=== PATIENT | female | born 1945 | race American Indian/Alaskan Native ===

== ENCOUNTER 2017-02-07 11:24 | Day surgery (SDC) | payer MEDICARE, OTHER ==
[~2017-02-07 11:24] MED LIST: ALLO100T PO; ASPI-1265 PO; CEPH-571 PO; CETI-1 PO; CHOL10002 PO; HYDR-569 PO; LEVO125T8 PO; ROSU5TAB4 PO; SILV20CR13 TOP; ZAR2.5T PO
[2017-02-07] MEDS ORDERED: LIDOcaine 2% 5ml jelly ONE ×2 (12:05)
== END 2017-02-07 13:16 | disposition home or self-care (01) ==
LOC: WOUND CARE 11:24
PROVIDERS: ATTEND Surgery
DX: I87.2 Venous insufficiency (chronic) (peripheral) (principal); L98.491 Non-pressure chronic ulcer of skin of other sites limited to breakdown of skin; E11.621 Type 2 diabetes mellitus with foot ulcer; E11.622 Type 2 diabetes mellitus with other skin ulcer; L97.511 Non-pressure chronic ulcer of other part of right foot limited to breakdown of skin; L97.821 Non-pressure chronic ulcer of other part of left lower leg limited to breakdown of skin; T22.20XD Burn of second degree of shoulder and upper limb, except wrist and hand, unspecified site, subsequent encounter; T31.0 Burns involving less than 10% of body surface; J44.9 Chronic obstructive pulmonary disease, unspecified; M10.9 Gout, unspecified; E78.00 Pure hypercholesterolemia, unspecified; E11.22 Type 2 diabetes mellitus with diabetic chronic kidney disease; I13.0 Hypertensive heart and chronic kidney disease with heart failure and stage 1 through stage 4 chronic kidney disease, or unspecified chronic kidney disease; N18.9 Chronic kidney disease, unspecified; I50.9 Heart failure, unspecified; Z90.710 Acquired absence of both cervix and uterus; Z85.038 Personal history of other malignant neoplasm of large intestine; Z79.82 Long term (current) use of aspirin; Z79.899 Other long term (current) drug therapy; X08.8XXD Exposure to other specified smoke, fire and flames, subsequent encounter
CPT/HCPCS: 97597; A6021; A6206; A6213; A6441

== ENCOUNTER 2017-02-14 11:38 | Outpatient (CLI) | payer MEDICARE, OTHER ==
[2017-02-14] MEDS ORDERED: silver sulfadiazine cream 50gm TP ONE (12:55)
== END 2017-02-14 12:51 | disposition home or self-care (01) ==
LOC: WOUND CARE 11:38
PROVIDERS: ATTEND Surgery
DX: E11.622 Type 2 diabetes mellitus with other skin ulcer (principal); L98.491 Non-pressure chronic ulcer of skin of other sites limited to breakdown of skin; L97.821 Non-pressure chronic ulcer of other part of left lower leg limited to breakdown of skin; L97.811 Non-pressure chronic ulcer of other part of right lower leg limited to breakdown of skin; E11.621 Type 2 diabetes mellitus with foot ulcer; L97.511 Non-pressure chronic ulcer of other part of right foot limited to breakdown of skin; T25.221D Burn of second degree of right foot, subsequent encounter; I13.0 Hypertensive heart and chronic kidney disease with heart failure and stage 1 through stage 4 chronic kidney disease, or unspecified chronic kidney disease; E11.22 Type 2 diabetes mellitus with diabetic chronic kidney disease; N18.9 Chronic kidney disease, unspecified; I50.9 Heart failure, unspecified; J44.9 Chronic obstructive pulmonary disease, unspecified; M10.9 Gout, unspecified; E78.00 Pure hypercholesterolemia, unspecified; I87.2 Venous insufficiency (chronic) (peripheral); Z90.710 Acquired absence of both cervix and uterus; Z79.82 Long term (current) use of aspirin; Z79.899 Other long term (current) drug therapy; Z85.038 Personal history of other malignant neoplasm of large intestine; Z90.49 Acquired absence of other specified parts of digestive tract; X08.8XXD Exposure to other specified smoke, fire and flames, subsequent encounter
CPT/HCPCS: 29581; 36416; 82948; A6206; A6223; A6441

== ENCOUNTER 2017-02-20 11:05 | Outpatient (CLI) | payer MEDICARE, OTHER | END 2017-02-20 12:37 | disposition home or self-care (01) | LOC: WOUND CARE 11:05 | PROVIDERS: ATTEND Surgery | DX: I87.2 Venous insufficiency (chronic) (peripheral) (principal); L98.491 Non-pressure chronic ulcer of skin of other sites limited to breakdown of skin; E11.622 Type 2 diabetes mellitus with other skin ulcer; L97.821 Non-pressure chronic ulcer of other part of left lower leg limited to breakdown of skin; J44.9 Chronic obstructive pulmonary disease, unspecified; M10.9 Gout, unspecified; E11.22 Type 2 diabetes mellitus with diabetic chronic kidney disease; I13.0 Hypertensive heart and chronic kidney disease with heart failure and stage 1 through stage 4 chronic kidney disease, or unspecified chronic kidney disease; I50.9 Heart failure, unspecified; N18.9 Chronic kidney disease, unspecified; E78.00 Pure hypercholesterolemia, unspecified; Z79.82 Long term (current) use of aspirin; Z79.899 Other long term (current) drug therapy; Z85.038 Personal history of other malignant neoplasm of large intestine; Z90.710 Acquired absence of both cervix and uterus; Z90.49 Acquired absence of other specified parts of digestive tract | CPT/HCPCS: 29581; 36416; 82948; A6021; A6212; A6222; A6441 ==

== ENCOUNTER 2017-02-28 11:00 | Day surgery (SDC) | payer MEDICARE, OTHER | END 2017-02-28 13:40 | disposition home or self-care (01) | LOC: WOUND CARE 11:00 | PROVIDERS: ATTEND Surgery | DX: T22.20XD Burn of second degree of shoulder and upper limb, except wrist and hand, unspecified site, subsequent encounter (principal); E11.622 Type 2 diabetes mellitus with other skin ulcer; L97.821 Non-pressure chronic ulcer of other part of left lower leg limited to breakdown of skin; L97.811 Non-pressure chronic ulcer of other part of right lower leg limited to breakdown of skin; E11.22 Type 2 diabetes mellitus with diabetic chronic kidney disease; I13.0 Hypertensive heart and chronic kidney disease with heart failure and stage 1 through stage 4 chronic kidney disease, or unspecified chronic kidney disease; N18.4 Chronic kidney disease, stage 4 (severe); I50.9 Heart failure, unspecified; E78.00 Pure hypercholesterolemia, unspecified; Z90.710 Acquired absence of both cervix and uterus; X08.8XXD Exposure to other specified smoke, fire and flames, subsequent encounter | CPT/HCPCS: 17250; 29581; 36416; 82948; A6021; A6206; A6213; A6441 ==

== ENCOUNTER 2017-03-07 10:50 | Day surgery (SDC) | payer MEDICARE, OTHER ==
[~2017-03-07 10:50] MED LIST changes: -CEPH-571 PO
== END 2017-03-07 12:32 | disposition home or self-care (01) ==
LOC: WOUND CARE 10:50
PROVIDERS: ATTEND Surgery
DX: E11.622 Type 2 diabetes mellitus with other skin ulcer (principal); L98.491 Non-pressure chronic ulcer of skin of other sites limited to breakdown of skin; N18.4 Chronic kidney disease, stage 4 (severe); I11.0 Hypertensive heart disease with heart failure; I50.9 Heart failure, unspecified; E78.00 Pure hypercholesterolemia, unspecified; J44.9 Chronic obstructive pulmonary disease, unspecified; M10.9 Gout, unspecified; I87.2 Venous insufficiency (chronic) (peripheral); I49.9 Cardiac arrhythmia, unspecified; K21.9 Gastro-esophageal reflux disease without esophagitis; Z85.42 Personal history of malignant neoplasm of other parts of uterus; Z90.710 Acquired absence of both cervix and uterus; Z79.82 Long term (current) use of aspirin; Z79.899 Other long term (current) drug therapy; Z85.038 Personal history of other malignant neoplasm of large intestine; Z90.49 Acquired absence of other specified parts of digestive tract
CPT/HCPCS: 17250; 36416; 82948; A6021; A6212; A6222; A6441

== ENCOUNTER 2017-09-27 09:25 | Day surgery (SDC) | payer MEDICARE, OTHER | END 2017-09-27 12:45 | disposition home or self-care (01) | LOC: WOUND CARE 09:25 | PROVIDERS: ATTEND Surgery | DX: E11.622 Type 2 diabetes mellitus with other skin ulcer (principal); L97.221 Non-pressure chronic ulcer of left calf limited to breakdown of skin; L97.821 Non-pressure chronic ulcer of other part of left lower leg limited to breakdown of skin; L97.811 Non-pressure chronic ulcer of other part of right lower leg limited to breakdown of skin; E11.22 Type 2 diabetes mellitus with diabetic chronic kidney disease; I13.0 Hypertensive heart and chronic kidney disease with heart failure and stage 1 through stage 4 chronic kidney disease, or unspecified chronic kidney disease; N18.4 Chronic kidney disease, stage 4 (severe); I50.9 Heart failure, unspecified; E11.65 Type 2 diabetes mellitus with hyperglycemia; E78.00 Pure hypercholesterolemia, unspecified; J44.9 Chronic obstructive pulmonary disease, unspecified; M10.9 Gout, unspecified; I87.2 Venous insufficiency (chronic) (peripheral); I49.9 Cardiac arrhythmia, unspecified; K21.9 Gastro-esophageal reflux disease without esophagitis; Z85.42 Personal history of malignant neoplasm of other parts of uterus; Z90.710 Acquired absence of both cervix and uterus; Z79.82 Long term (current) use of aspirin; Z79.899 Other long term (current) drug therapy; Z85.038 Personal history of other malignant neoplasm of large intestine; Z90.49 Acquired absence of other specified parts of digestive tract | CPT/HCPCS: 97597; A6021; A6223; A6441 ==

== ENCOUNTER 2017-10-04 10:00 | Outpatient (CLI) | payer MEDICARE, OTHER ==
[~2017-10-04 10:00] MED LIST changes: -SILV20CR13 TOP
== END 2017-10-04 12:29 | disposition home or self-care (01) ==
LOC: WOUND CARE 10:00 → EDSTATUS 10:00 → WOUND CARE 12:29
PROVIDERS: ATTEND Surgery
DX: E11.622 Type 2 diabetes mellitus with other skin ulcer (principal); L97.221 Non-pressure chronic ulcer of left calf limited to breakdown of skin; L97.821 Non-pressure chronic ulcer of other part of left lower leg limited to breakdown of skin; L97.811 Non-pressure chronic ulcer of other part of right lower leg limited to breakdown of skin; I83.223 Varicose veins of left lower extremity with both ulcer of ankle and inflammation; L97.321 Non-pressure chronic ulcer of left ankle limited to breakdown of skin; E11.621 Type 2 diabetes mellitus with foot ulcer; L97.511 Non-pressure chronic ulcer of other part of right foot limited to breakdown of skin; E11.22 Type 2 diabetes mellitus with diabetic chronic kidney disease; I13.0 Hypertensive heart and chronic kidney disease with heart failure and stage 1 through stage 4 chronic kidney disease, or unspecified chronic kidney disease; N18.4 Chronic kidney disease, stage 4 (severe); I50.9 Heart failure, unspecified; E11.65 Type 2 diabetes mellitus with hyperglycemia; E78.00 Pure hypercholesterolemia, unspecified; J44.9 Chronic obstructive pulmonary disease, unspecified; M10.9 Gout, unspecified; I49.9 Cardiac arrhythmia, unspecified; K21.9 Gastro-esophageal reflux disease without esophagitis; Z85.42 Personal history of malignant neoplasm of other parts of uterus; Z90.710 Acquired absence of both cervix and uterus; Z79.82 Long term (current) use of aspirin; Z79.899 Other long term (current) drug therapy; Z85.038 Personal history of other malignant neoplasm of large intestine; Z90.49 Acquired absence of other specified parts of digestive tract
CPT/HCPCS: 29581; A6021; A6196; A6223; A6441

== ENCOUNTER 2017-10-11 09:37 | Outpatient (CLI) | payer MEDICARE, OTHER | END 2017-10-11 12:22 | disposition home or self-care (01) | LOC: WOUND CARE 09:37 → EDSTATUS 10:00 → WOUND CARE 12:22 | PROVIDERS: ATTEND Surgery | DX: E11.622 Type 2 diabetes mellitus with other skin ulcer (principal); L97.221 Non-pressure chronic ulcer of left calf limited to breakdown of skin; L97.821 Non-pressure chronic ulcer of other part of left lower leg limited to breakdown of skin; L97.811 Non-pressure chronic ulcer of other part of right lower leg limited to breakdown of skin; I83.223 Varicose veins of left lower extremity with both ulcer of ankle and inflammation; L97.321 Non-pressure chronic ulcer of left ankle limited to breakdown of skin; E11.621 Type 2 diabetes mellitus with foot ulcer; L97.511 Non-pressure chronic ulcer of other part of right foot limited to breakdown of skin; E11.22 Type 2 diabetes mellitus with diabetic chronic kidney disease; I13.0 Hypertensive heart and chronic kidney disease with heart failure and stage 1 through stage 4 chronic kidney disease, or unspecified chronic kidney disease; N18.4 Chronic kidney disease, stage 4 (severe); I50.9 Heart failure, unspecified; E11.65 Type 2 diabetes mellitus with hyperglycemia; E78.00 Pure hypercholesterolemia, unspecified; J44.9 Chronic obstructive pulmonary disease, unspecified; M10.9 Gout, unspecified; I49.9 Cardiac arrhythmia, unspecified; K21.9 Gastro-esophageal reflux disease without esophagitis; Z85.42 Personal history of malignant neoplasm of other parts of uterus; Z90.710 Acquired absence of both cervix and uterus; Z79.82 Long term (current) use of aspirin; Z79.899 Other long term (current) drug therapy; Z85.038 Personal history of other malignant neoplasm of large intestine; Z90.49 Acquired absence of other specified parts of digestive tract | CPT/HCPCS: 29581; 36416; 82948; A6223; A6441 ==

== ENCOUNTER 2017-10-25 09:50 | Outpatient (CLI) | payer MEDICARE, OTHER | END 2017-10-25 12:11 | disposition home or self-care (01) | LOC: WOUND CARE 09:50 → EDSTATUS 10:00 → WOUND CARE 12:11 | PROVIDERS: ATTEND Surgery | DX: E11.622 Type 2 diabetes mellitus with other skin ulcer (principal); L97.221 Non-pressure chronic ulcer of left calf limited to breakdown of skin; L97.821 Non-pressure chronic ulcer of other part of left lower leg limited to breakdown of skin; L97.811 Non-pressure chronic ulcer of other part of right lower leg limited to breakdown of skin; I83.223 Varicose veins of left lower extremity with both ulcer of ankle and inflammation; L97.321 Non-pressure chronic ulcer of left ankle limited to breakdown of skin; E11.22 Type 2 diabetes mellitus with diabetic chronic kidney disease; I13.0 Hypertensive heart and chronic kidney disease with heart failure and stage 1 through stage 4 chronic kidney disease, or unspecified chronic kidney disease; E11.621 Type 2 diabetes mellitus with foot ulcer; L97.511 Non-pressure chronic ulcer of other part of right foot limited to breakdown of skin; N18.4 Chronic kidney disease, stage 4 (severe); I50.9 Heart failure, unspecified; E11.65 Type 2 diabetes mellitus with hyperglycemia; E78.00 Pure hypercholesterolemia, unspecified; J44.9 Chronic obstructive pulmonary disease, unspecified; M10.9 Gout, unspecified; I49.9 Cardiac arrhythmia, unspecified; K21.9 Gastro-esophageal reflux disease without esophagitis; Z85.42 Personal history of malignant neoplasm of other parts of uterus; Z90.710 Acquired absence of both cervix and uterus; Z79.82 Long term (current) use of aspirin; Z79.899 Other long term (current) drug therapy; Z85.038 Personal history of other malignant neoplasm of large intestine; Z90.49 Acquired absence of other specified parts of digestive tract | CPT/HCPCS: 29581; 36416; 82948; 93971; A6021; A6223; A6441 ==

== ENCOUNTER 2017-11-01 09:41 | Outpatient (CLI) | payer MEDICARE, OTHER | END 2017-11-01 11:20 | disposition home or self-care (01) | LOC: WOUND CARE 09:41 → EDSTATUS 10:00 → WOUND CARE 11:20 | PROVIDERS: ATTEND Surgery | DX: E11.622 Type 2 diabetes mellitus with other skin ulcer (principal); L97.221 Non-pressure chronic ulcer of left calf limited to breakdown of skin; L97.821 Non-pressure chronic ulcer of other part of left lower leg limited to breakdown of skin; L97.811 Non-pressure chronic ulcer of other part of right lower leg limited to breakdown of skin; I83.223 Varicose veins of left lower extremity with both ulcer of ankle and inflammation; L97.321 Non-pressure chronic ulcer of left ankle limited to breakdown of skin; E11.22 Type 2 diabetes mellitus with diabetic chronic kidney disease; I13.0 Hypertensive heart and chronic kidney disease with heart failure and stage 1 through stage 4 chronic kidney disease, or unspecified chronic kidney disease; E11.621 Type 2 diabetes mellitus with foot ulcer; L97.511 Non-pressure chronic ulcer of other part of right foot limited to breakdown of skin; N18.4 Chronic kidney disease, stage 4 (severe); I50.9 Heart failure, unspecified; E11.65 Type 2 diabetes mellitus with hyperglycemia; E78.00 Pure hypercholesterolemia, unspecified; J44.9 Chronic obstructive pulmonary disease, unspecified; M10.9 Gout, unspecified; I49.9 Cardiac arrhythmia, unspecified; K21.9 Gastro-esophageal reflux disease without esophagitis; Z85.42 Personal history of malignant neoplasm of other parts of uterus; Z90.710 Acquired absence of both cervix and uterus; Z79.82 Long term (current) use of aspirin; Z79.899 Other long term (current) drug therapy; Z85.038 Personal history of other malignant neoplasm of large intestine; Z90.49 Acquired absence of other specified parts of digestive tract | CPT/HCPCS: 29581; 36416; 82948; A6441 ==

== ENCOUNTER 2018-02-17 13:26 | Inpatient (IN) | payer MEDICARE, OTHER ==
[~2018-02-17] VITALS: Ht 157.5 cm; Wt 132.6 kg
[~2018-02-17 13:26] MED LIST changes: +HYDR-4383 PO; -HYDR-569 PO
[2018-02-17] MEDS ORDERED: ipratropium/albuterol 3ml nebule NEB ONE (14:00)
[2018-02-17] MEDS ORDERED: nitroGLYCERIN 0.4mg/hour patch TD ONE (14:10)
[2018-02-17] MEDS ORDERED: furosemide 10 MG/1 ML 10ml inj IV ONE (14:10)
[2018-02-17 14:14] LABS: BASOPHILS % (AUTO) 0.3 % (0-1); EOSINOPHILS # (AUTO) 0.2 X10'3 (0-0.9); HEMATOCRIT 35.4 % (35.0-45.0); HEMOGLOBIN 11.2 g/dl (12.0-16.0); LYMPHOCYTES # (AUTO) 0.9 X10'3 (1.1-4.8); LYMPHOCYTES % (AUTO) 9.1 % (21-51); MEAN CORPUSCULAR HEMOGLOBIN 30.9 PG (27.0-31.0); MEAN CORPUSCULAR HGB CONC 31.5 % (33.0-36.5); MEAN CORPUSCULAR VOLUME 97.9 FL (78-98); MEAN PLATELET VOLUME 9.8 FL (7.4-10.4); MONOCYTES # (AUTO) 0.3 X10'3 (0-0.9); NEUTROPHILS % (AUTO) 85.6 % (42-75); PLATELET COUNT 120 X10'3 (140-440); RED BLOOD COUNT 3.62 X10'6 (4.20-5.60); RED CELL DISTRIBUTION WIDTH 15.4 % (11.5-14.5); WHITE BLOOD COUNT 9.4 X10'3 (4.5-11.0)
[2018-02-17 14:28] LABS: INR 1.1 INR; PARTIAL THROMBOPLASTIN TIME 26 SECONDS (22-32); PROTHROMBIN TIME 10.9 SECONDS (9.0-12.0)
[2018-02-17 14:39] LABS: ALANINE AMINOTRANSFERASE 19 U/L (12-78); ALBUMIN 2.9 G/DL (3.4-5.0); ALBUMIN/GLOBULIN RATIO 0.5 (1.1-1.5); ALKALINE PHOSPHATASE 122 IU/L (46-116); ANION GAP 8 (8-16); ASPARTATE AMINO TRANSFERASE 15 U/L (10-37); BILIRUBIN,TOTAL 0.5 MG/DL (0.1-1.0); BLOOD UREA NITROGEN 37 MG/DL (7-18); BUN/CREATININE RATIO 23.6 (6.6-38.0); CALCIUM 8.8 MG/DL (8.5-10.1); CHLORIDE 106 MMOL/L (99-107); CREATININE 1.57 MG/DL (0.40-0.90); GLUCOSE 99 MG/DL (70-104); POTASSIUM 4.9 MMOL/L (3.5-5.1); SODIUM 144 MMOL/L (135-145); TOTAL CARBON DIOXIDE 29.9 MMOL/L (24-32); TOTAL PROTEIN 8.2 G/DL (6.4-8.2); eGFR 32 ML/MIN
[2018-02-17] MEDS ORDERED: FURO40TA4 PO (16:00)
[2018-02-17] MEDS ORDERED: POTA20TA19 PO (16:00)
[2018-02-17] MEDS ORDERED: levoFLOXACIN-Levaquin 500mg/D5 100 ML IV ONE (16:35)
[2018-02-17] MEDS ORDERED: mag hydrox/Alum hydrox/simeth 30ml oral suspension PO PRN (16:50)
[2018-02-17] MEDS ORDERED: potassium Cl 40MEQ/NS 500ml 500 ML IV PRN ×2 (16:50)
[2018-02-17] MEDS ORDERED: acetaminophen 325mg tablet PO PRN (16:50)
[2018-02-17] MEDS ORDERED: potassium Cl 20 mEq SR tablet PO PRN ×2 (16:50)
[2018-02-17] MEDS ORDERED: morphine 4 MG/ML inj SYRINge IV PRN (16:50)
[2018-02-17] MEDS ORDERED: magnesium 4gm in 100ml NS 100 ML IV PRN (16:50)
[2018-02-17] MEDS ORDERED: magnesium 2GM in 50ml NS 50 ML IV PRN (16:50)
[2018-02-17] MEDS ORDERED: magnesium Cl slow-release 64mg tablet PO PRN (16:50)
[2018-02-17] MEDS ORDERED: ondansetron/PF 4mg/2ml inj IV PRN (16:50)
[2018-02-17] MEDS ORDERED: magnesium hydroxide 30ml (MOM) UD suspension PO PRN (16:50)
[2018-02-17] MEDS ORDERED: HUM7525 (16:57)
[2018-02-17] MEDS ORDERED: FERR325T29 PO (16:59)
[2018-02-17] MEDS ORDERED: ATOR10TA70 PO (16:59)
[2018-02-17] MEDS ORDERED: OMEG1CAP97 PO (17:00)
[2018-02-17] MEDS ORDERED: glucagon, human recombinant 1mg kit SUBCUT PRN (17:00)
[2018-02-17] MEDS ORDERED: MESSAGE TO PHARMACY PO ONE (17:00)
[2018-02-17] MEDS ORDERED: dextrose 50%-water 50ml dispensing syringe IV PRN ×2 (17:00)
[2018-02-17] MEDS ORDERED: dextrose ORAL solution 15 GM/59 ML bottle PO PRN ×2 (17:00)
[2018-02-17] MEDS ORDERED: LOSA25TA41 PO (17:01)
[2018-02-17 17:23] LABS: HEMOGLOBIN A1C 6.3 % (4.5-6.2)
[2018-02-17] MEDS ORDERED: ipratropium/albuterol 3ml nebule NEB PRN (18:40)
[2018-02-17] MEDS: heparin, porcine 5000 units/ml vial SQ SCH (20:09)
[2018-02-17] MEDS: carVEDilol 3.125mg tablet PO SCH (20:09)
[2018-02-17] MEDS: furosemide 40mg/4ml inj IV SCH (20:10)
[2018-02-17] MEDS: methylPREDNISolone sod succ/PF 40mg inj. IV SCH (20:10)
--- NOTE | 2018-02-17 20:39 | NUR ---
patient arrived to 3024[facility]. went straight to bathroom off oxygen with assistance from . pt had increased SOB upon walking back to bed. placed warm blankets on patient, encouraged to breath through nose not mouth. tolerated well. and son at bedside.
[2018-02-17 20:50] VITALS: BP 176/70
[2018-02-17] MEDS: insulin glargine (Lantus) pen - multi-dose SQ SCH (21:00)
[2018-02-17 22:00] VITALS: BP 176/87
[2018-02-18] VITALS (7 sets, daily range): BP systolic 111–179; BP diastolic 30–68
[2018-02-18] MEDS: methylPREDNISolone sod succ/PF 40mg inj. IV SCH ×4 (01:57→19:38)
[2018-02-18 05:56] LABS: BASOPHILS % (AUTO) 0.3 % (0-1); EOSINOPHILS % (AUTO) 0 % (0-6); HEMATOCRIT 32.5 % (35.0-45.0); HEMOGLOBIN 10.3 g/dl (12.0-16.0); LYMPHOCYTES # (AUTO) 0.4 X10'3 (1.1-4.8); LYMPHOCYTES % (AUTO) 5.4 % (21-51); MEAN CORPUSCULAR HEMOGLOBIN 30.9 PG (27.0-31.0); MEAN CORPUSCULAR HGB CONC 31.6 % (33.0-36.5); MEAN CORPUSCULAR VOLUME 97.6 FL (78-98); MEAN PLATELET VOLUME 10.1 FL (7.4-10.4); MONOCYTES % (AUTO) 0.2 % (2-12); NEUTROPHILS # (AUTO) 7.7 X10'3 (1.8-7.7); NEUTROPHILS % (AUTO) 94.1 % (42-75); PLATELET COUNT 100 X10'3 (140-440); RED BLOOD COUNT 3.33 X10'6 (4.20-5.60); RED CELL DISTRIBUTION WIDTH 15.1 % (11.5-14.5); WHITE BLOOD COUNT 8.2 X10'3 (4.5-11.0)
[2018-02-18 06:16] LABS: ALBUMIN 2.6 G/DL (3.4-5.0); ALBUMIN/GLOBULIN RATIO 0.5 (1.1-1.5); ANION GAP 4 (8-16); ASPARTATE AMINO TRANSFERASE 15 U/L (10-37); BILIRUBIN,TOTAL 0.4 MG/DL (0.1-1.0); BLOOD UREA NITROGEN 41 MG/DL (7-18); BUN/CREATININE RATIO 23.7 (6.6-38.0); CALCIUM 8.4 MG/DL (8.5-10.1); CHLORIDE 107 MMOL/L (99-107); CREATININE 1.73 MG/DL (0.40-0.90); GLUCOSE 157 MG/DL (70-104); MAGNESIUM 1.8 MG/DL (1.5-2.4); POTASSIUM 5.3 MMOL/L (3.5-5.1); SODIUM 143 MMOL/L (135-145); TOTAL CARBON DIOXIDE 32.5 MMOL/L (24-32); TOTAL PROTEIN 7.4 G/DL (6.4-8.2); eGFR 29 ML/MIN
[2018-02-18 06:17] LABS: ALANINE AMINOTRANSFERASE 16 U/L (12-78); ALKALINE PHOSPHATASE 108 IU/L (46-116)
--- NOTE | 2018-02-18 06:36 | NUR ---
reported to days. noted assist to [facility] for patient. bed alarm active for assistance. anticipate CXR this am for follow up on pulmonary congestion. pt still gets very SOB with sitting or standing.
--- NOTE | 2018-02-18 06:41 | NUR ---
Patient in room PCU 3024. I have received report from ROSY Augustin and had the opportunity to ask questions and assume patient care.
[2018-02-18] MEDS: K and/or MAG REPLACEMENT MC SCH (08:00)
[2018-02-18] MEDS: heparin, porcine 5000 units/ml vial SQ SCH ×3 (08:00→19:40)
[2018-02-18] MEDS: levoTHYROXINE 125mcg tablet PO SCH (09:18)
[2018-02-18] MEDS: CefTRIAXone/D5W-Rocephin 1gm 50 ML IV SCH (09:20)
[2018-02-18] MEDS: aspirin 81mg tab.chew PO SCH (09:20)
[2018-02-18] MEDS: carVEDilol 3.125mg tablet PO SCH ×2 (09:21→19:39)
[2018-02-18] MEDS: losartan 25mg tablet PO SCH (09:22)
[2018-02-18] MEDS: vitamin D (cholecalciferol) 1,000 unit tablet PO SCH (09:23)
[2018-02-18] MEDS: ferrous sulfate 325mg tablet PO SCH (09:23)
[2018-02-18] MEDS: cetirizine 10mg tablet PO SCH (09:24)
[2018-02-18] MEDS: furosemide 40mg/4ml inj IV SCH ×2 (09:26→19:38)
[2018-02-18] MEDS: azithromycin/NS 500mg/250ml 250 ML IV SCH (11:27)
[2018-02-18] MEDS ORDERED: sodium polystyrene sulfonate 15gm/60ml oral suspension PO ONE (13:05)
--- NOTE | 2018-02-18 13:20 | NUR ---
Patient load preventative timely accucheck. Accucheck completed after patient consumed a portion of lunch tray. Her blood glucose was 208. Will continue to monitor and recheck before dinner tray.
--- NOTE | 2018-02-18 17:52 | NUR ---
Orienteer documentation: I have reviewed and agree with all interventions, assessments performed and documented by Emili GALLEGOS.
--- NOTE | 2018-02-18 18:30 | NUR ---
Patient in room PCU 3024. I have received report from Liliana GALLEGOS and had the opportunity to ask questions and assume patient care. Pt is currently finishing up her dinner tray. Woo -- family member at the bedside. Discussed POC and answered questions with pt, and that we have just started her on hyperglycemic protocol, will return with insulin. she does not appear to be in any distress.
[2018-02-18] MEDS: insulin Lispro (HumaLOG) vial - multi-dose SQ SCH (19:36)
[2018-02-18] MEDS: lactobacillus rhamnosus 10,000 MMU CELLS/CAPSULE PO SCH (19:39)
--- NOTE | 2018-02-18 20:28 | NUR ---
Daughter Kaitlynn called for updates. Will call again tmro.
[2018-02-18] MEDS: insulin glargine (Lantus) pen - multi-dose SQ SCH (21:49)
[2018-02-19] MEDS: methylPREDNISolone sod succ/PF 40mg inj. IV SCH ×4 (02:55→19:34)
[2018-02-19 03:00] VITALS: BP 125/52
[2018-02-19 05:39] LABS: BASOPHILS % (AUTO) 0 % (0-1); EOSINOPHILS % (AUTO) 0.1 % (0-6); HEMATOCRIT 32.1 % (35.0-45.0); HEMOGLOBIN 10.2 g/dl (12.0-16.0); LYMPHOCYTES # (AUTO) 0.5 X10'3 (1.1-4.8); LYMPHOCYTES % (AUTO) 6.9 % (21-51); MEAN CORPUSCULAR HEMOGLOBIN 31.1 PG (27.0-31.0); MEAN CORPUSCULAR HGB CONC 31.9 % (33.0-36.5); MEAN CORPUSCULAR VOLUME 97.8 FL (78-98); MEAN PLATELET VOLUME 10.4 FL (7.4-10.4); MONOCYTES # (AUTO) 0.2 X10'3 (0-0.9); MONOCYTES % (AUTO) 2.5 % (2-12); NEUTROPHILS % (AUTO) 90.5 % (42-75); PLATELET COUNT 108 X10'3 (140-440); RED BLOOD COUNT 3.28 X10'6 (4.20-5.60); RED CELL DISTRIBUTION WIDTH 14.3 % (11.5-14.5); WHITE BLOOD COUNT 6.7 X10'3 (4.5-11.0)
[2018-02-19 06:00] VITALS: BP 117/53
[2018-02-19 06:02] LABS: ALANINE AMINOTRANSFERASE 16 U/L (12-78); ALBUMIN 2.6 G/DL (3.4-5.0); ALBUMIN/GLOBULIN RATIO 0.6 (1.1-1.5); ALKALINE PHOSPHATASE 104 IU/L (46-116); ANION GAP 4 (8-16); ASPARTATE AMINO TRANSFERASE 11 U/L (10-37); BILIRUBIN,TOTAL 0.3 MG/DL (0.1-1.0); BLOOD UREA NITROGEN 48 MG/DL (7-18); BUN/CREATININE RATIO 26.8 (6.6-38.0); CALCIUM 8.2 MG/DL (8.5-10.1); CHLORIDE 105 MMOL/L (99-107); CREATININE 1.79 MG/DL (0.40-0.90); GLUCOSE 196 MG/DL (70-104); MAGNESIUM 2.1 MG/DL (1.5-2.4); POTASSIUM 5.1 MMOL/L (3.5-5.1); SODIUM 144 MMOL/L (135-145); TOTAL CARBON DIOXIDE 35.2 MMOL/L (24-32); TOTAL PROTEIN 7.3 G/DL (6.4-8.2); eGFR 28 ML/MIN
--- NOTE | 2018-02-19 06:06 | NUR ---
Problems reprioritized. Patient report given, questions answered & plan of care reviewed with Sarah GALLEGOS.
--- NOTE | 2018-02-19 06:41 | NUR ---
Patient in room PCU 3024. I have received report from Cathi GALLEGOS and had the opportunity to ask questions and assume patient care. Pt is now on 1 Liter nasal canula, alert and oriented X4, will continue to monitor.
[2018-02-19] MEDS: CefTRIAXone/D5W-Rocephin 1gm 50 ML IV SCH (07:22)
[2018-02-19] MEDS: cetirizine 10mg tablet PO SCH (07:23)
[2018-02-19] MEDS: ferrous sulfate 325mg tablet PO SCH (07:23)
[2018-02-19] MEDS: vitamin D (cholecalciferol) 1,000 unit tablet PO SCH (07:23)
[2018-02-19] MEDS: aspirin 81mg tab.chew PO SCH (07:23)
[2018-02-19] MEDS: levoTHYROXINE 125mcg tablet PO SCH (07:23)
[2018-02-19] MEDS: lactobacillus rhamnosus 10,000 MMU CELLS/CAPSULE PO SCH ×2 (07:23→19:33)
[2018-02-19] MEDS: furosemide 40mg/4ml inj IV SCH ×2 (07:24→19:33)
[2018-02-19] MEDS: losartan 25mg tablet PO SCH (07:24)
[2018-02-19] MEDS: heparin, porcine 5000 units/ml vial SQ SCH ×2 (08:00→19:33)
[2018-02-19] MEDS: K and/or MAG REPLACEMENT MC SCH (08:00)
[2018-02-19] MEDS: azithromycin/NS 500mg/250ml 250 ML IV SCH (09:49)
[2018-02-19] MEDS: insulin Lispro (HumaLOG) vial - multi-dose SQ SCH ×3 (09:54→19:31)
[2018-02-19] MEDS: carVEDilol 3.125mg tablet PO SCH ×2 (10:04→19:33)
--- NOTE | 2018-02-19 10:40 | NUR ---
Pt's platelet count is low (108) and has decreased. Per Dr. Avalos, hold this mornings sub q heparin.
[2018-02-19 11:00] VITALS: BP 114/52
[2018-02-19 15:00] VITALS: BP 126/41
--- NOTE | 2018-02-19 18:29 | NUR ---
Problems reprioritized. Patient report given, questions answered & plan of care reviewed with Deep RN.
[2018-02-19 19:00] VITALS: BP 119/50
[2018-02-19] MEDS: insulin glargine (Lantus) pen - multi-dose SQ SCH (22:36)
[2018-02-19 23:00] VITALS: BP 144/55
[2018-02-20] MEDS: methylPREDNISolone sod succ/PF 40mg inj. IV SCH ×3 (02:52→13:34)
[2018-02-20 03:00] VITALS: BP 136/52
[2018-02-20 05:24] LABS: BASOPHILS % (AUTO) 0 % (0-1); EOSINOPHILS % (AUTO) 0 % (0-6); HEMATOCRIT 32.6 % (35.0-45.0); HEMOGLOBIN 10.2 g/dl (12.0-16.0); LYMPHOCYTES # (AUTO) 0.4 X10'3 (1.1-4.8); LYMPHOCYTES % (AUTO) 5.3 % (21-51); MEAN CORPUSCULAR HEMOGLOBIN 30.8 PG (27.0-31.0); MEAN CORPUSCULAR HGB CONC 31.4 % (33.0-36.5); MEAN CORPUSCULAR VOLUME 98.4 FL (78-98); MEAN PLATELET VOLUME 10.7 FL (7.4-10.4); MONOCYTES # (AUTO) 0.2 X10'3 (0-0.9); NEUTROPHILS # (AUTO) 7.4 X10'3 (1.8-7.7); NEUTROPHILS % (AUTO) 92.7 % (42-75); PLATELET COUNT 101 X10'3 (140-440); RED BLOOD COUNT 3.32 X10'6 (4.20-5.60); RED CELL DISTRIBUTION WIDTH 14.5 % (11.5-14.5)
[2018-02-20 05:27] LABS: ALANINE AMINOTRANSFERASE 17 U/L (12-78); ALBUMIN 2.6 G/DL (3.4-5.0); ALBUMIN/GLOBULIN RATIO 0.6 (1.1-1.5); ALKALINE PHOSPHATASE 97 IU/L (46-116); ANION GAP 2 (8-16); ASPARTATE AMINO TRANSFERASE 11 U/L (10-37); BILIRUBIN,TOTAL 0.3 MG/DL (0.1-1.0); BLOOD UREA NITROGEN 56 MG/DL (7-18); BUN/CREATININE RATIO 30.6 (6.6-38.0); CALCIUM 8.2 MG/DL (8.5-10.1); CHLORIDE 105 MMOL/L (99-107); CREATININE 1.83 MG/DL (0.40-0.90); GLUCOSE 210 MG/DL (70-104); MAGNESIUM 2.1 MG/DL (1.5-2.4); POTASSIUM 4.6 MMOL/L (3.5-5.1); SODIUM 145 MMOL/L (135-145); TOTAL CARBON DIOXIDE 37.9 MMOL/L (24-32); TOTAL PROTEIN 7.2 G/DL (6.4-8.2); eGFR 27 ML/MIN
[2018-02-20 06:00] VITALS: BP 134/46
--- NOTE | 2018-02-20 06:10 | NUR ---
Problems reprioritized. Patient report given, questions answered & plan of care reviewed with ROSY Smith.
--- NOTE | 2018-02-20 06:22 | NUR ---
Patient in room PCU 3024. I have received report from Meng and had the opportunity to ask questions and assume patient care. Pt is on 1 L nasal canula and easy to arouse. Pt is alert and orient X 4 and is sleeping. Will continue to monitor.
[2018-02-20] MEDS: CefTRIAXone/D5W-Rocephin 1gm 50 ML IV SCH (07:21)
[2018-02-20] MEDS: lactobacillus rhamnosus 10,000 MMU CELLS/CAPSULE PO SCH (07:21)
[2018-02-20] MEDS: ferrous sulfate 325mg tablet PO SCH (07:21)
[2018-02-20] MEDS: losartan 25mg tablet PO SCH (07:21)
[2018-02-20] MEDS: vitamin D (cholecalciferol) 1,000 unit tablet PO SCH (07:21)
[2018-02-20] MEDS: levoTHYROXINE 125mcg tablet PO SCH (07:22)
[2018-02-20] MEDS: aspirin 81mg tab.chew PO SCH (07:22)
[2018-02-20] MEDS: furosemide 40mg/4ml inj IV SCH (07:22)
[2018-02-20] MEDS: cetirizine 10mg tablet PO SCH (07:22)
[2018-02-20] MEDS: carVEDilol 3.125mg tablet PO SCH (07:22)
[2018-02-20] MEDS: heparin, porcine 5000 units/ml vial SQ SCH (08:00)
[2018-02-20] MEDS: K and/or MAG REPLACEMENT MC SCH (08:00)
[2018-02-20] MEDS: azithromycin/NS 500mg/250ml 250 ML IV SCH (08:14)
[2018-02-20] MEDS: insulin Lispro (HumaLOG) vial - multi-dose SQ SCH ×2 (08:18→13:33)
--- NOTE | 2018-02-20 09:25 | NUR ---
Spoke with Dr. Nevarez in regards to patient's platelet count of 101,000. Per Dr. Nevarez, hold heparin sub q this morning.
[2018-02-20 11:00] VITALS: BP 126/78
[2018-02-20] MEDS ORDERED: pantoprazole 40 MG vial IV SCH (12:25)
[2018-02-20] MEDS ORDERED: CEPH500C5 PO (14:07)
[2018-02-20] MEDS ORDERED: FURO-150 PO (14:07)
[2018-02-20] MEDS ORDERED: PANT-47 PO (14:07)
[2018-02-20] MEDS ORDERED: ALBU6.7H INH (14:07)
[2018-02-20] MEDS ORDERED: PRED10TA23 PO ×2 (14:07→14:16)
[2018-02-20 15:00] VITALS: BP 148/64
--- NOTE | 2018-02-20 17:12 | NUR ---
IV discontinue with canula intact. Tele monitor discontinued. Discharge instructions given to patient and patient's spouse. I provided medication instructions which included when to take the next dose for each new and continuing medication. I also provided pt education about safe use of home oxygen. I called in all new prescriptions to the [facility]. Patient's spouse picked up all new meds prior to discharge. Pt declined to have me schedule a follow up appointment. Pt stated that she has an appointment scheduled in a few days. Pt left in private vehicle driven by her spouse with all of her belongings.
== END 2018-02-20 16:35 | disposition home health service (06) | DRG 291 ==
LOC: ER 13:26 → ED HOLD 16:46 → PCU 3S 20:25
PROVIDERS: ADMIT Internal Medicine; ATTEND Internal Medicine
DX: I13.0 Hypertensive heart and chronic kidney disease with heart failure and stage 1 through stage 4 chronic kidney disease, or unspecified chronic kidney disease (principal); J96.21 Acute and chronic respiratory failure with hypoxia; I50.33 Acute on chronic diastolic (congestive) heart failure; J44.1 Chronic obstructive pulmonary disease with (acute) exacerbation; J44.0 Chronic obstructive pulmonary disease with (acute) lower respiratory infection; J98.11 Atelectasis; Z68.43 Body mass index [BMI] 50.0-59.9, adult; D35.01 Benign neoplasm of right adrenal gland; E03.9 Hypothyroidism, unspecified; E11.22 Type 2 diabetes mellitus with diabetic chronic kidney disease; E66.01 Morbid (severe) obesity due to excess calories; E78.00 Pure hypercholesterolemia, unspecified; E78.5 Hyperlipidemia, unspecified; G47.30 Sleep apnea, unspecified; I07.1 Rheumatic tricuspid insufficiency; E87.5 Hyperkalemia; I05.0 Rheumatic mitral stenosis; I27.20 Pulmonary hypertension, unspecified; J20.9 Acute bronchitis, unspecified; M10.9 Gout, unspecified; K29.70 Gastritis, unspecified, without bleeding; N18.3 Chronic kidney disease, stage 3 (moderate); Z91.14 Patient's other noncompliance with medication regimen; Z90.710 Acquired absence of both cervix and uterus; Z99.81 Dependence on supplemental oxygen; Z88.5 Allergy status to narcotic agent; Z91.018 Allergy to other foods; Z79.899 Other long term (current) drug therapy; Z87.01 Personal history of pneumonia (recurrent); Z87.891 Personal history of nicotine dependence; Z71.3 Dietary counseling and surveillance
CPT/HCPCS: 36415; 71045; 74176; 80053; 82948; 83036; 83605; 83735; 83880; 84443; 84484; 85025; 85610; 85730; 87040; 87070; 87502; 87503; 93005; 93306; 94640; 94760; 96374; 97161; 97530; 99285; C9113; G0378; J0456; J0696; J1644; J1815; J1940; J1956; J2920

== ENCOUNTER 2018-03-22 12:19 | Inpatient (IN) | payer MEDICARE, OTHER | END 2018-03-25 14:05 | LOC: ER 12:19 → PCU 3S 03-23 07:40 → ED HOLD 14:22 | DX: I50.33 Acute on chronic diastolic (congestive) heart failure (principal); J96.20 Acute and chronic respiratory failure, unspecified whether with hypoxia or hypercapnia; Z68.43 Body mass index [BMI] 50.0-59.9, adult; E66.01 Morbid (severe) obesity due to excess calories; E87.5 Hyperkalemia; N18.3 Chronic kidney disease, stage 3 (moderate) ==

== ENCOUNTER 2019-01-16 12:56 | Emergency (ER) | payer MEDICARE, OTHER ==
[~2019-01-16] VITALS: Ht 157.5 cm; Wt 168.2 kg
[~2019-01-16 12:56] MED LIST changes: +ALBU6.7H9 INH; -ALLO100T PO; +ATOR10TA70 PO; -CHOL10002 PO; +CHOL400T32 PO; +FERR325T29 PO; +HUM7525; -HYDR-4383 PO; +LOSA25TA41 PO; +OMEG1CAP97 PO; -ROSU5TAB4 PO; -ZAR2.5T PO
[2019-01-16 14:15] LABS: BASOPHILS # (AUTO) 0.1 X10'3 (0-0.2); BASOPHILS % (AUTO) 0.7 % (0-1); EOSINOPHILS # (AUTO) 0.1 X10'3 (0-0.9); EOSINOPHILS % (AUTO) 1.3 % (0-6); HEMATOCRIT 31.4 % (35.0-45.0); HEMOGLOBIN 10.2 g/dl (12.0-16.0); LYMPHOCYTES # (AUTO) 0.9 X10'3 (1.1-4.8); MEAN CORPUSCULAR HEMOGLOBIN 32.5 PG (27.0-31.0); MEAN CORPUSCULAR HGB CONC 32.6 g/dL (33.0-36.5); MEAN CORPUSCULAR VOLUME 99.9 FL (78-98); MEAN PLATELET VOLUME 9.5 FL (7.4-10.4); MONOCYTES # (AUTO) 0.4 X10'3 (0-0.9); MONOCYTES % (AUTO) 3.6 % (2-12); NEUTROPHILS # (AUTO) 8.9 X10'3 (1.8-7.7); NEUTROPHILS % (AUTO) 85.4 % (42-75); PLATELET COUNT 140 X10'3 (140-440); RED BLOOD COUNT 3.15 X10'6 (4.20-5.60); RED CELL DISTRIBUTION WIDTH 14.2 % (11.5-14.5); WHITE BLOOD COUNT 10.4 X10'3 (4.5-11.0)
[2019-01-16 14:25] LABS: PARTIAL THROMBOPLASTIN TIME 28 SECONDS (22-32)
[2019-01-16 14:28] LABS: ALANINE AMINOTRANSFERASE 8 U/L (12-78); ALBUMIN 2.7 G/DL (3.4-5.0); ALBUMIN/GLOBULIN RATIO 0.5 (1.1-1.5); ALKALINE PHOSPHATASE 134 IU/L (46-116); ANION GAP 7 (8-16); ASPARTATE AMINO TRANSFERASE 13 U/L (10-37); BILIRUBIN,TOTAL 0.5 MG/DL (0.1-1.0); BLOOD UREA NITROGEN 64 MG/DL (7-18); BUN/CREATININE RATIO 28.7 (6.6-38.0); CALCIUM 8.5 MG/DL (8.5-10.1); CHLORIDE 106 MMOL/L (99-107); CREATININE 2.23 MG/DL (0.40-0.90); GLUCOSE 130 MG/DL (70-104); POTASSIUM 5.1 MMOL/L (3.5-5.1); SODIUM 142 MMOL/L (135-145); TOTAL CARBON DIOXIDE 29.3 MMOL/L (24-32); TOTAL PROTEIN 7.9 G/DL (6.4-8.2); eGFR 21 ML/MIN
[2019-01-16] MEDS ORDERED: furosemide 10 MG/1 ML 10ml inj IV ONE (14:55)
--- NOTE | 2019-01-16 16:28 | NUR ---
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
[2019-01-16 16:45] VITALS: BP 132/71
== END 2019-01-16 16:40 | disposition home or self-care (01) ==
LOC: ER 12:57
DX: I13.0 Hypertensive heart and chronic kidney disease with heart failure and stage 1 through stage 4 chronic kidney disease, or unspecified chronic kidney disease (principal); E11.22 Type 2 diabetes mellitus with diabetic chronic kidney disease; I50.9 Heart failure, unspecified; N18.9 Chronic kidney disease, unspecified; J44.9 Chronic obstructive pulmonary disease, unspecified; E78.00 Pure hypercholesterolemia, unspecified; Z90.49 Acquired absence of other specified parts of digestive tract; Z90.710 Acquired absence of both cervix and uterus; Z87.891 Personal history of nicotine dependence; Z88.5 Allergy status to narcotic agent; Z79.82 Long term (current) use of aspirin; Z79.899 Other long term (current) drug therapy
CPT/HCPCS: 36415; 71046; 80053; 83880; 84484; 85025; 85610; 85730; 93005; 96374; 99284; J1940